=== PATIENT | female | born 1980 | race Caucasian/White ===

== ENCOUNTER 2016-08-09 10:52 | Emergency (ER) | payer MEDICAID ==
[~2016-08-09] VITALS: Ht 149.9 cm; Wt 89.3 kg
[2016-08-09 11:08] VITALS: BP 127/83
== END 2016-08-09 11:25 | disposition home or self-care (01) ==
LOC: ED 10:52
DX: N76.0 Acute vaginitis (principal); K21.9 Gastro-esophageal reflux disease without esophagitis; G90.50 Complex regional pain syndrome I, unspecified; K58.9 Irritable bowel syndrome, unspecified; F32.9 Major depressive disorder, single episode, unspecified; Z79.899 Other long term (current) drug therapy; Z88.8 Allergy status to other drugs, medicaments and biological substances

== ENCOUNTER 2017-01-26 16:23 | Emergency (ER) | payer MEDICAID ==
[2017-01-26 18:57] VITALS: BP 111/67
== END 2017-01-26 18:57 | disposition home or self-care (01) ==
LOC: ED 16:23
DX: N75.0 Cyst of Bartholin's gland (principal); K21.9 Gastro-esophageal reflux disease without esophagitis; K58.9 Irritable bowel syndrome, unspecified; J45.909 Unspecified asthma, uncomplicated

== ENCOUNTER 2019-02-22 20:34 | Emergency (ER) | payer BC ==
[~2019-02-22] VITALS: Ht 149.9 cm; Wt 100.7 kg
[2019-02-22 20:45] VITALS: Ht 149.9 cm; Wt 100.7 kg
[2019-02-22 22:45] VITALS: BP 152/89
== END 2019-02-22 22:45 | disposition home or self-care (01) ==
LOC: ED 20:34
DX: S39.012A Strain of muscle, fascia and tendon of lower back, initial encounter (principal); J45.909 Unspecified asthma, uncomplicated; K21.9 Gastro-esophageal reflux disease without esophagitis; F32.9 Major depressive disorder, single episode, unspecified; Z88.8 Allergy status to other drugs, medicaments and biological substances; V49.9XXA Car occupant (driver) (passenger) injured in unspecified traffic accident, initial encounter; Y93.I9 Activity, other involving external motion; Y92.413 State road as the place of occurrence of the external cause; Y99.8 Other external cause status
CPT/HCPCS: J1885

== ENCOUNTER 2019-06-03 16:13 | Emergency (ER) | payer BC ==
[~2019-06-03] VITALS: Ht 149.9 cm; Wt 99.8 kg
[2019-06-03 16:16] VITALS: Ht 149.9 cm; Wt 99.8 kg
[2019-06-03 21:03] VITALS: BP 131/76
== END 2019-06-03 21:03 | disposition home or self-care (01) ==
LOC: ED 16:13
DX: J40 Bronchitis, not specified as acute or chronic (principal); J06.9 Acute upper respiratory infection, unspecified; K21.9 Gastro-esophageal reflux disease without esophagitis; Z88.5 Allergy status to narcotic agent
CPT/HCPCS: 87804